=== PATIENT | female | born 1965 | race Caucasian/White ===

== ENCOUNTER 2017-04-29 16:55 | Inpatient (IN) | payer OTHER ==
--- NOTE | ~2017-04-29 | CT71 ---
[facility] A Service [facility] RADIOLOGY TEXT RESULTS PATIENT: JOY RIGGS LOCATION: [place] [address] : [birth year] UNIT #: [id number] AGE: [address]: Shane Jaeger MD SEX: F ORDER DR: [id number] [place] [id number] [place], [place] [address] [id number] I MR#: [id number] Acc #: [id number] NAME: JOY RIGGS : 1965 SEX: F STUDY DATE/TIME: 04/30/2017 12:24 UNIT: [facility] ROOM: [facility] STUDY DESCRIPTION: CT Head Wo Contrast Attending Physician: Shane Jaeger M.D. Ordering Physician: Leopoldo Enamorado M.D. Primary Care Physician: Shane Jaeger M.D. MEDICAL IMAGING REPORT This report is preliminary unless electronic signature is present TECHNIQUE Head CT, no contrast; 04/30/2017. PROCEDURE Axial unenhanced head CT. This CT exam was performed with one or more of the following radiation dose reduction techniques: automatic exposure control, adjustment of mA and/or kV according to patient size, and iterative reconstruction. COMPARISON None. CLINICAL HISTORY Two to three day history of persistent intermittent headache. FINDINGS The skull base and calvaria are normal. There is no intracranial hemorrhage. There is no mass or hydrocephalus or extraaxial fluid collection. Brain parenchymal density is normal. The extracranial soft tissues are unremarkable. IMPRESSION Normal negative unenhanced head CT. Dictated by... Aniceto Sterling M.D. THIS IS AN ELECTRONICALLY VERIFIED REPORT Aniceto Sterling M.D. at 05/03/2017 10:57 AM TEV/jt [facility] A Service [facility] RADIOLOGY TEXT RESULTS PATIENT: JOY RIGGS LOCATION: [place] [address] : 63 UNIT #: [id number] AGE: [address]: Shane Jaeger MD SEX: F ORDER DR: TD: 04/30/2017 18:25 JOB #: [id number] MEDICAL IMAGING REPORT Page 1 of 1 COPY
--- NOTE | ~2017-04-29 | HP ---
Unit #: [id number] #: [id number] Patient: JOY BENJAMIN [id number] [address] [address] [id number] I MR#: [id number] NAME: JOY BENJAMIN. ROOM: [facility] Age: 51 Sex: F Admission Date: 04/29/2017 : 1965 Attending Physician: Shane Jaeger M.D. Primary Care Physician: Shane Jaeger M.D. HISTORY AND PHYSICAL ADMISSION DIAGNOSES 1. Sepsis. 2. Bacteremia. 3. Altered mental status. 4. Diabetes. 5. Morbid obesity. 6. Obstructive sleep apnea. 7. Asthma and chronic obstructive pulmonary disease. 8. Hypertension. 9. Depression. 10. Left lower extremity cellulitis. HISTORY OF PRESENT ILLNESS Ms. Benjamin is 51-year-old female, patient of Dr. Jaeger, who apparently started having fever, chills for last couple of days along with the altered mental status and confusion. His temperature went up as high as 103. She also complains of some headache and further sensitivity. She denies any nausea, vomiting, diarrhea, abdominal pain. Denies any chest pain or dizziness. Denies any syncope or presyncope. However, she is quite confused. She is oriented to place; however, she is disoriented to time. She thinks it is year 2008. According to her, her symptoms started about two to three days ago. Here, initial evaluation was significant for 2/2 positive blood cultures with GPC (gram-positive cocci), also elevated lactic acid. Last one is 5.1. She was admitted and started on empiric IV antibiotics in ICU with the sepsis protocol. REVIEW OF SYSTEMS A 12-point review of systems on this patient is basically negative except as above in HPI. PAST MEDICAL HISTORY 1. Hypertension. 2. Morbid obesity. 3. Diabetes. 4. COPD. 5. Asthma. 6. Obstructive sleep apnea. 7. Depression. PAST SURGICAL HISTORY Significant for umbilical hernia repair. MEDICATIONS Current medications on this female include: Unit #: [id number] #: [id number] Patient: JOY BENJAMIN 1. Lipitor. 2. Desyrel. 3. Vancomycin. 4. Lovenox. 5. Topamax. 6. Furosemide. 7. Flonase. 8. Claritin. 9. Zoloft. 10. Zestril. 11. Ceftriaxone. 12. Clindamycin. 13. Spiriva. 14. Proventil. 15. Vitamin D. 16. Tylenol. 17. IV fluids with half normal saline. ALLERGIES No known drug allergies. SOCIAL HISTORY No current history of tobacco, alcohol, or illicit drugs. FAMILY HISTORY Unremarkable. PHYSICAL EXAMINATION GENERAL: Patient is a 51-year-old morbidly obese female, mild distress secondary to headache. VITAL SIGNS: BP 137/67, heart rate 125, respirations 20, temperature 99.8. HEENT: Head is atraumatic. Pupils equal, round, and reactive to light. Oropharynx clear. NECK: Supple. No masses. No JVD. No bruits. CHEST: Diminished bilaterally. CARDIOVASCULAR: S1, S2. No murmurs. ABDOMEN: Obese, soft, nontender, nondistended. EXTREMITIES: Lower extremities with some trace edema. Also, extensive erythema on the left beginning about mid tibia all the way down to the foot. NEUROLOGIC: Patient alert and awake; however, confused. No focal neurological deficits. Moves all four extremities. No facial asymmetry. DIAGNOSTIC STUDIES LABORATORY: Again, blood culture as above. Chemistries significant for potassium of 3.1, sodium 130, blood glucose 130, BUN and creatinine 19 and 0.9. PT/INR 14.1 and 1.3. Set of cardiac enzymes negative. White count 16,000, H and H 12.1 and 37.6. Again, last lactic acid 5.1. ASSESSMENT AND PLAN 1. Sepsis with bacteremia: Continue IV antibiotics per infectious disease. Dr. Enamorado has been seeing the patient. 2. Altered mental status, most likely will need to have a lumbar puncture status post negative CT. 3. Lower extremity cellulitis: Again, continue antibiotics. 4. Diabetes: Currently stable. 5. Morbid obesity with obstructive sleep apnea: Continue CPAP. Unit #: [id number] #: [id number] Patient: JOY BENJAMIN 6. Asthma, chronic obstructive pulmonary disease: Currently at the baseline. 7. Hypertension: Stable. 8. Depression. 9. Dyslipidemia: Continue home meds. 10. Gastrointestinal and deep venous thrombosis prophylaxis: Continue Lovenox. Start on some Protonix. Dictated by Jose Alfredo Thomason M.D. KEATON/brendan TD: 05/01/2017 08:35 JOB #: [id number] HISTORY AND PHYSICAL Page 1 of 1 X Jose Alfredo Thomason MD HISTORY AND PHYSICAL
--- NOTE | ~2017-04-29 | XA75 ---
[facility] A Service of [facility] & [facility] RADIOLOGY TEXT RESULTS PATIENT: JOY RIGGS LOCATION: [facility] 558-01 : 63 UNIT #: [id number] AGE: [address]: Shane Jaeger MD SEX: F ORDER DR: [id number] [facility] [address] [place], [place] [address] [id number] I MR#: [id number] Acc #: [id number] NAME: JOY RIGGS. : 1965 SEX: F STUDY DATE/TIME: 04/30/2017 16:04 UNIT: [facility] ROOM: [facility] STUDY DESCRIPTION: XA CVC Non-Tunnel Attending Physician: Shane Jaeger M.D. Ordering Physician: Shane Jaeger M.D. Primary Care Physician: Shane Jaeger M.D. MEDICAL IMAGING REPORT This report is preliminary unless electronic signature is present EXAM Central line placement INDICATIONS Need for IV access in a patient with acute kidney injury, fever and tachycardia noted on April 29, 2017. PROCEDURE Procedure was explained to the patients freight representative, including risks, benefits and potential complications, potential for alternative forms of treatment. Informed consent was obtained and prior to initiating the procedure a formal time-out procedure was performed. Using all elements of maximal sterile barrier technique, including hand hygiene, caps, sterile gowns and gloves and masks. The right neck was prepped with 2% chlorhexidine percutaneous antisepsis and covered with large sterile sheet. The ultrasound probe was covered with sterile probe cover and sterile gel was applied. Real time sterile ultrasound guidance was used to localize right internal jugular vein, which was found to be patent and compressible. A hard copy ultrasound image was obtained. After local anesthesia with 1% Xylocaine the vein was punctured using real-time sterile ultrasound guidance and an 0.018 catheter was advanced into the superior vena cava under fluoroscopic guidance. Micropuncture sheath was placed and an Amplatz wire was advanced into the inferior vena cava. Tract was dilated and a new triple-lumen central venous line was advanced over wire and positioned within the right atrium. Following placement of the catheter it flushed and aspirated easily. It was secured using two 2-0 silk sutures. Position of the catheter was confirmed with radiographic image. Total fluoroscopy time was 0.3 minutes and a single fluoroscopic image was obtained. IMPRESSION Successful placement of a right internal jugular vein central venous line [facility]. [facility] A Service of [facility] & [facility] RADIOLOGY TEXT RESULTS PATIENT: JOY RIGGS LOCATION: [facility] 558-01 : 63 UNIT #: [id number] AGE: [address]: Shaen Jaeger MD SEX: F ORDER DR: which terminates within the right atrium. This catheter is ready for immediate use. Ultrasound and fluoroscopy were used in placement of the catheter and permanent images were saved. Dictated by... Bernice Dhaliwal M.D. THIS IS AN ELECTRONICALLY VERIFIED REPORT Bernice Dhaliwal M.D. at 05/03/2017 5:21 PM BRITNEY/jim TD: 05/03/2017 15:52 JOB #: [id number] MEDICAL IMAGING REPORT Page 1 of 1 COPY
--- NOTE | ~2017-04-29 | DS ---
Unit #: [id number] #: [id number] Patient: JOY RIGGS [id number] [address] [address] [id number] I MR#: [id number] NAME: JOY RIGGS. ROOM: 578 Age: 51 Sex: F Admission Date: 04/29/2017 : 1965 Discharge Date: 05/10/2017 Attending Physician: Shane Jaeger M.D. Primary Care Physician: Shane Jaeger M.D. DISCHARGE SUMMARY FINAL DIAGNOSES 1. Septic shock. 2. Toxic metabolic encephalopathy. 3. Strep bacteremia. 4. Cellulitis. 5. Osteomyelitis has been ruled out. 6. Hypertension. 7. Acute kidney injury. 8. Hypokalemia, which is improved. 9. Diabetes mellitus. 10. Obstructive sleep apnea. 11. Morbid obesity. 12. History of asthma/chronic obstructive pulmonary disease. 13. History of depression. DISCHARGE MEDICATIONS 1. IV ceftriaxone 2 g q.24 hour till 05/14/2017. 2. Desyrel 200 mg at bedtime, which is a home dose. 3. Zoloft 200 mg daily. 4. Glucophage 1000 mg b.i.d. 5. Neurontin 300 mg b.i.d. 6. Florastor 250 mg daily. 7. Tanzeum 50 subcu daily at home dose. 8. Spiriva daily. 9. Pravastatin 40 mg daily. 10. Vitamin D 1.25 mg every weekly. 11. Flonase daily. 12. QVAR inhaler daily. 13. Spironolactone 25 mg b.i.d. 14. Albuterol inhaler on p.r.n. basis. 15. Claritin 10 mg daily. 16. Bumex 2 mg daily. 17. Zestril 20 mg daily. DIAGNOSTIC STUDIES LABORATORY RESULTS: On discharge, sodium 131, potassium 3.6, chloride 98, BUN 23, creatinine 1.6, and calcium 8.3. WBC 14.8, hemoglobin 9.7, hematocrit 29.4, and platelet count of 572. Glucose 120. Lactic acid on discharge is 0.7. Repeat blood cultures on 05/01/2017 was no growth. Urine culture showed no growth. IMAGING STUDIES: Significant radiological studies done with CT scan of the lower extremity. There was no fracture or bone destruction. Unit #: [id number] #: [id number] Patient: JOY RIGGS Degenerative changes were noted. No osteomyelitic changes were seen. Ultrasound of the lower extremity, which shows no sonographic evidence of DVT or SVT. Ultrasound of kidneys showed no hydronephrosis or shadowing stone on either site. HOSPITAL COURSE Ms. Jesus is a 51-year-old female who was admitted to the hospital on 04/29/2017 with sepsis and bacteremia. The patient was admitted by my colleague, Dr. Thomason. The patient had lower extremity cellulitis. She was admitted to ICU. She has had a long stay during hospitalization. Osteomyelitis has been ruled out. The patient's antibiotics are as per Dr. Enamorado, who was consulted during hospitalization. The patient needs to continue her antibiotics till 05/14/2017. The patient did have group A strep sepsis secondary to left lower extremity cellulitis. The patient's leukocytosis has been resolved. The patient is to continue ceftriaxone 2 g IV daily through 05/14/2017. On 05/14/2017, check CBC, BMP, and results to be faxed to primary care provider and discontinue PICC line. PHYSICAL EXAMINATION On discharge; VITAL SIGNS: Blood pressure is 145/82, respiratory rate 17, pulse is 50, temperature 98.2, and oxygen saturation is 92%. HEENT: Head is normocephalic. CHEST: Fair air entry. Decreased at the bases. CVS: S1 and S2 positive. Regular rhythm. ABDOMEN: Obese. EXTREMITIES: Decreased redness and swelling of the left lower extremity. DISCHARGE INSTRUCTIONS 1. Follow up with primary care provider in 1 week. 2. [facility]NA to consult for home IV antibiotics. 3. manager marketing sales to arrange for home O2. 4. Walking room air pulse ox was done to eval for home O2. 5. Antibiotic is as per Infectious Disease. 6. Plan of care has been discussed with the patient at length. Dictated by.Rsoalia. Heather Conley M.D. ADORE/taylor TD: 05/12/2017 02:46 JOB #: [id number] DISCHARGE SUMMARY Page 1 of 1 X Heather Conley MD DISCHARGE SUMMARY
--- NOTE | ~2017-04-29 | CT92 ---
[facility] A Service of [facility] & [facility] RADIOLOGY TEXT RESULTS PATIENT: JOY RIGGS LOCATION: [facility] 578-01 : 63 UNIT #: [id number] AGE: [address]: Shane Jaeger MD SEX: F ORDER DR: [id number] [facility] [address] [place], [place] [address] [id number] I MR#: [id number] Acc #: [id number] NAME: JOY RIGGS. : 1965 SEX: F STUDY DATE/TIME: 05/04/2017 13:54 UNIT: C5B ROOM: 558 STUDY DESCRIPTION: CT Lower Ext Lt Wo Cont Attending Physician: Shane Jaeger M.D. Ordering Physician: Leopoldo Enamorado M.D. Primary Care Physician: Shane Jaeger M.D. MEDICAL IMAGING REPORT This report is preliminary unless electronic signature is present EXAM CT left foot without contrast HISTORY Foot pain and swelling and redness for 4 days. Heel redness and swelling and pain. No injury. This CT exam was performed with one or more of the following radiation dose reduction techniques: automatic exposure control, adjustment of mA and/or kV according to patient size, and iterative reconstruction. FINDINGS CT left foot without contrast demonstrates no bone destruction. No fracture. Moderate degenerative changes in the midfoot and hindfoot and ankle. Approximately 4 mm well-marginated curvilinear calcification versus foreign body in the plantar soft tissues of the great toe at the level of the IP joint. Mild diffuse subcutaneous stranding about the ankle and foot, greater along the plantar margin of the calcaneus, could be secondary to edema or cellulitis. No fluid collections are identified. There is also a 3 mm soft tissue calcification over the dorsum of the forefoot adjacent to the midshaft of the second metatarsal. IMPRESSION 1. No fracture or bone destruction. 2. Degenerative changes in the foot and ankle. 3. Mild to moderate soft tissue swelling about the ankle and foot, slightly greater along the plantar margin of the posterior calcaneus. This could be secondary to edema or cellulitis. No focal fluid collections are identified. 4. Small probably incidental soft tissue calcifications along the plantar margin of the great toe at the level of the IP joint and along the dorsum of the forefoot at the level of the distal second metatarsal. [facility] A Service of [facility] RADIOLOGY TEXT RESULTS PATIENT: JOY RIGGS LOCATION: [place] [address] : [birth year] UNIT #: [id number] AGE: [address]: Shane Jaeger MD SEX: F ORDER DR: Dictated by... Juan Ortiz M.D. THIS IS AN ELECTRONICALLY VERIFIED REPORT Juan Ortiz M.D. at 05/05/2017 11:31 PM МАРИЯ/cha TD: 05/05/2017 04:01 JOB #: [id number] MEDICAL IMAGING REPORT Page 1 of 1 COPY
--- NOTE | ~2017-04-29 | CO ---
Unit #: [id number] #: [id number] Patient: JOY RIGGS [id number] [place] [address] [facility] [place], [place] [address] [id number] I MR#: [id number] NAME: JOY RIGGS. ROOM: [facility] Age: 51 Sex: F Admission Date: 04/29/2017 : 1965 Attending Physician: Shane Jaeger M.D. Primary Care Physician: Shane Jaeger M.D. Consultation Date: 04/30/2017 CONSULTATION REPORT REASON FOR CONSULTATION Sepsis. HISTORY OF PRESENT ILLNESS This is a 51-year-old obese diabetic female who is unable to provide much of her history secondary to lethargy and confusion. The patient was brought in to the hospital by her family after the son talked to her at 8 a.m. He reported that she had been having fevers for a few days, but is fairly nonspecific. But, then when he called her again at noon to check on her she had some more confusion and he brought her to the emergency room. The patient was sent to [facility] for sepsis management. While here the patient has had a t-max of 103 degrees Fahrenheit. She has had leukocytosis with bandemia and elevated lactic acid. CT scan of the chest, abdomen and pelvis was negative. However, the patient remains confused at this time this morning. The patient has been started on vancomycin, Zosyn and clindamycin and infectious disease was asked to evaluate. The patient's son also reported that her left toenail came off a few weeks ago and had some toe surgery several months ago. PAST MEDICAL HISTORY Obtained through the patient's last history and physical in 2014. 1. History of diabetes. 2. Asthma. 3. Chronic obstructive pulmonary disease. 4. Obstructive sleep apnea and wears a CPAP. 5. Hypertension. 6. Depression. 7. Obesity. 8. Umbilical hernia surgery. SOCIAL HISTORY The patient lives with others. 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 She has no current tobacco since 2004. She does not use any alcohol or IV drugs. ALLERGIES No known drug allergies. CURRENT MEDICATIONS 1. Vancomycin. 2. Zosyn. 3. Clindamycin. Unit #: [id number] #: [id number] Patient: JOY RIGGS For further medications please refer to the patient's MAR. She is not requiring any pressor support. REVIEW OF SYSTEMS Difficult secondary to the patient's lethargy and confusion, as she thinks it is 1966. She does report that she has intermittent headache and neck pain and pain with urination. Otherwise she denies any symptoms. PHYSICAL EXAMINATION GENERAL: This is a lethargic, confused female, but she does awaken to attempt to answer questions and then falls asleep easily. VITALS: Temperature 100.2 with a t-max of 103.0, pulse 138, blood pressure 115/78, with a low blood pressure of 85/53 on admission, respiratory rate 28. HEENT: Pupils are sluggish. NECK: Supple. LUNGS: Clear to auscultation bilaterally with no wheezes or rhonchi noted. HEART: S1 and S2 with tachycardia. ABDOMEN: Positive bowel sounds. Soft and nontender. EXTREMITIES: Left lower extremity shows some cellulitis that has been traveling up to her mid wal[place]. She has what appears to be trauma to her left fifth toe and maybe partial amputation to her second toe. DIAGNOSTIC STUDIES IMAGING: CT scan of the abdomen and pelvis shows no renal stones, no hydronephrosis, no acute findings in the GI tract and bladder is compressed by the [place]. Please see full report as there is mention of some retroperitoneal adenopathy that was present in 2010, but somewhat worsened. CT scan of the chest shows no acute findings in the chest. LABORATORY: BUN 19, creatinine 0.9, sodium 130, potassium 5.7, chloride 87, CO2 36, bilirubin 0.8, AST 34, ALT 22, alkaline phosphatase 98, lactic acid 3.5, which is improved from 5.6. White blood cell count 16.5, which is improved from 23.5 and 5% bandemia. Platelets 202, hemoglobin 12.1, hematocrit 37.6. Urinalysis shows negative nitrites, 5-10 WBCs, 1+ bacteria. Microbiology data, 2 of 2 positive blood cultures for Gram positive cocci in chains. Urine culture is pending. Stool culture is pending. ASSESSMENT This is a 51-year-old female who is diabetic and obese, who has been having some fevers at home, but difficult to obtain much other history. The patient had some developing and worsening confusion per the family and was brought to the hospital and was found to be septic. The patient does have Gram positive cocci in chains and suspect a strep infection. The patient also has fever and confusion. Suspected sources at this time include left lower extremity cellulitis and possible cysto osteomyelitis. The patient will need blood cultures repeated. She will need an MRI of her lower extremity and toe when stable. Will check inflammatory markers with CRP and sedimentation rate. 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 However, will need to rule out any possibility of meningitis and pneumococcal meningitis as the patient does have ongoing confusion and fever. The patient's CT scan of the chest, abdomen and pelvis were negative. However, the patient Unit #: [id number] #: [id number] Patient: JOY RIGGS has ongoing diarrhea and studies for her stool are currently pending. At this time will plan to continue current antibiotics. Will repeat blood cultures. Will check inflammatory markers. Will check a CT scan of her head and a STAT PT/INR. Will also ask interventional radiology to do a lumbar puncture and send fluid for cell count with diff, glucose, protein, gram stain and culture, AFB and fungal smear and culture. Will recommend to continue vancomycin and clindamycin, but discontinue the Zosyn and place the patient on high-dose Rocephin pending the patient's workup. This case was discussed in detail with Dr. Leopoldo Enamorado at the time that orders were written, who confirmed that the patient does need a lumbar puncture and adjustment of antibiotic therapy. Dr. Leopoldo Enamorado will evaluate this patient today as well. This case was also discussed with the patient's son, who was at the bedside and then after he left we called him on the phone to consent for a lumbar puncture. The patient's son understands the need for the lumbar puncture and consents to this procedure. Thank you for allowing us to participate in the care of this patient. Further recommendations to follow pending the patient's clinical course. Dictated by... Ivonne Chambers TD: 04/30/2017 10:09 JOB #: [id number] CONSULTATION REPORT Page 1 of 1 X X CONSULTATION REPORT
--- NOTE | ~2017-04-29 | BMI ---
[facility] Nutrition Therapy DATE: 04/30/17 Patient: JOY Chávez KEELY Physician: ARLET Address: [address] [place] [address] DRIVE Room/Bed: [address], Zip: [place] [address] Admit Date: 04/29/17 Date of : [birth year] Height: 5 5 Weight: 414 188 HIGH BMI NOTE: ANTHROPOMETRICS: HT: 5'5" WT: 188 KG BMI: 69 DIET: CONSISTENT CARBOHYDRATE RECOMMENDATIONS: 1. ADD A HEART HEALTHY DIET RESTRICTION IN ORDER TO PROMOTE GRADUAL WEIGHT LOSS TOWARDS HEALTHY BMI RANGE. Respectfully, JOSE FORD RD, LD Food and Nutritional Services [facility] cc: client file
--- NOTE | ~2017-04-29 | US84 ---
[id number] [facility]. [facility] [address]. [place], [place] [address] [id number] I MR#: [id number] Acc #: [id number] NAME: JOY RIGGS : 1965 SEX: F STUDY DATE/TIME: 05/04/2017 12:58 UNIT: C5B ROOM: 558 STUDY DESCRIPTION: US LE Veins Complete Dewayne Stdy Attending Physician: Shane Jaeger M.D. Ordering Physician: Giulia Hirsch M.D. Primary Care Physician: Shane Jaeger M.D. MEDICAL IMAGING REPORT This report is preliminary unless electronic signature is present EXAM Bilateral lower extremity venous Doppler HISTORY 51-year-old female bilateral lower extremity cellulitis since . Patient on blood thinners. Complains of calf pain. FINDINGS 2-D and Doppler evaluation of the lower extremities demonstrates normal flow and compressibility of the major veins of both lower extremities. No intraluminal thrombus identified. Study technically limited due to patient's morbid obesity. Hypoechoic structure seen in the left groin compatible with a lymph node measures up to 3.8 cm. IMPRESSION No sonographic evidence of DVT or SVT within either lower extremity. Study technically limited due to body habitus. Dictated by... Rosa Esteves M.D. THIS IS AN ELECTRONICALLY VERIFIED REPORT Rosa Esteves M.D. at 05/05/2017 12:31 PM Bill TD: 05/05/2017 00:56 JOB #: [id number] MEDICAL IMAGING REPORT Page 1 of 1 COPY
--- NOTE | ~2017-04-29 | CO ---
Unit #: [id number] #: [id number] Patient: JOY RIGGS [id number] [address] [place], [place] [address] [id number] I MR#: [id number] NAME: JOY RIGGS. ROOM: [facility] Age: 51 Sex: F Admission Date: 04/29/2017 : 1965 Attending Physician: Shane Jaeger M.D. Primary Care Physician: Shane Jaeger M.D. CONSULTATION REPORT REASON FOR CONSULTATION Elevated creatinine level. HISTORY OF PRESENT ILLNESS The patient is a 51-year-old, obese white female with known history of hypertension, type 2 diabetes, COPD, came in with a fever and confusion, noted to have Gram-positive cocci in both cultures, also elevated lactic acid of 5.1. Patient temperature of 103 with a temperature of 98 degrees on admission. Patient given IV fluids and also given vancomycin and Zosyn and clindamycin. The admission creatinine was 1.4 which is slowly rising to 3.1 today. No noted NSAIDs. No recent IV contrast. REVIEW OF SYSTEMS CVS: No chest pain. RESPIRATORY: No cough or expectoration. GASTROINTESTINAL: No diarrhea. No vomiting. GENITOURINARY: No hematuria. No dysuria. PAST MEDICAL HISTORY The past medical history is significant for hypertension, morbid obesity, diabetes, COPD, obstructive sleep apnea. PAST SURGICAL HISTORY Past surgical history is significant for umbilical hernia. MEDICATIONS The medications include Lipitor, Desyrel, vancomycin and Topamax, furosemide, Flonase, Zoloft, Zestril, ceftriaxone, clindamycin, Proventil, vitamin D. ALLERGIES No known drug allergies. SOCIAL HISTORY Does not drink. Does not smoke. FAMILY HISTORY Family history is unremarkable for end-stage renal disease. PHYSICAL EXAMINATION GENERAL APPEARANCE: The patient is awake, alert, and oriented. VITAL SIGNS: Temperature is 99.8, blood pressure 137/67, saturation 100%, with a heart rate of 88 per minute. Unit #: [id number] #: [id number] Patient: JOY RIGGS HEENT: Head is atraumatic. Extraocular movements are intact. Sclerae are anicteric. Nose no discharge. Ears no discharge. NECK: Neck is supple. There is no elevation of the JVD. CHEST: Chest is clear. Air entry is equal bilaterally. Breathing is vesicular in nature. HEART: S1, S2 audible. There is no S3, no S4. ABDOMEN: Abdomen is soft. There is no organomegaly, no guarding, no rigidity, no rebound tenderness. EXTREMITIES: There is trace edema over the left lower extremity with clinical cellulitis on admission. [employer]ATE EXAM: Motor system is intact. Cerebellar system intact. DIAGNOSTIC STUDIES LABORATORY: On admission sodium 130, potassium 4.1, chloride 98, CO2 20, BUN 19, creatinine 1.4, glucose 377, calcium 8.4. The urinalysis with 2+ protein and 5 to 10 WBCs, 1+ bacteria. WBCs 23.5, hemoglobin and hematocrit is 14.1 and 43.2, with a platelet count of 54. Lactic acid is 3.5. The creatinine level is 3.3 this morning. IMAGING: A CT scan of the chest, abdomen and pelvis with possible colitis. IMPRESSION 1. Acute kidney injury, possibly secondary to a combination of vancomycin and Zosyn: Check vancomycin level. Less likely to be ATN secondary to hypotension and sepsis. Also possible contribution and exacerbation by concomitant Zestril. Check renal ultrasound for any evidence of obstruction. Renal function could worsen in the next one to two days before stabilization. Do not expect to need dialysis during the hospitalization. 2. Hyponatremia, likely hemodynamically related. 3. Non-anion gap metabolic acidosis secondary to acute kidney injury. 4. Hypocalcemia: Supplement calcium and check vitamin D levels. 5. Hypokalemia: Supplement potassium. 6. Sepsis. 7. Cellulitis. 8. Gram-positive coccemia/bacteremia. 9. Hypertension. 10. Diabetes. Dictated by... Melissa Burgess TD: 05/02/2017 16:09 JOB #: [id number] Unit #: [id number] #: [id number] Patient: JOY RIGGS CONSULTATION REPORT Page 1 of 1 X Arun Min MD CONSULTATION REPORT
--- NOTE | ~2017-04-29 | EKG ---
PATIENT: JOY RIGGS UNIT #: [id number] Ventricular Rate: 110 BPM Atrial Rate: 129 BPM P-R Interval: 174 ms QRS Duration: 92 ms Q-T Interval: 344 ms QTC Calculation(Bezet): 465 ms P [place]: 77 degrees Calculated R [place]: 17 degrees Calculated T [place]: 32 degrees Diagnosis Line: Sinus tachycardia with Premature atrial complexes Diagnosis Line: in a pattern of bigeminy Diagnosis Line: Nonspecific T wave abnormality Diagnosis Line: Abnormal ECG Diagnosis Line: Diagnosis Line: Confirmed by DESIRAE RAMIREZ MD ([id number]) on 05/05/2017 Diagnosis Line: 2:44:19 PM INTERPRETING MD: ASHLEY PAULINO
--- NOTE | ~2017-04-29 | XA166 ---
[facility] A Service of [facility] RADIOLOGY TEXT RESULTS PATIENT: JOY RIGGS LOCATION: [facility] 578-01 : [birth year] UNIT #: [id number] AGE: [address]: Shane Jaeger MD SEX: F ORDER DR: [id number] [facility] [address] [facility]. [place], [place] [address] [id number] I MR#: [id number] Acc #: [id number] NAME: JOY RIGGS. : 1965 SEX: F STUDY DATE/TIME: 05/06/2017 15:13 UNIT: [facility] ROOM: [facility] STUDY DESCRIPTION: XA PICC Line Placement WO Port Attending Physician: Shane Jaeger M.D. Ordering Physician: Deniz Arcos M.D. Primary Care Physician: Shane Jaeger M.D. MEDICAL IMAGING REPORT This report is preliminary unless electronic signature is present EXAM Right-sided PICC line placement. INDICATION Need for IV access in patient with acute renal failure. FINDINGS PRE-PROCEDURE The procedure was explained to the patient and/or patient underwriting service representative, including risks, benefits, potential complications and potential for alternative forms of treatment. Informed consent was obtained, and prior to initiating the procedure, a formal timeout procedure was performed. PROCEDURE Using full standard sterile barrier technique, including caps, gowns, gloves, and masks, as well as sterile skin preparation and standard sterile draping, the right arm was prepped and draped in the usual fashion, and real-time sterile ultrasound guidance was used to localize a right arm vein and to confirm vessel patency. A hard copy ultrasound image was recorded. After local anesthesia with 1% Xylocaine, the vein was punctured using real-time sterile ultrasound guidance, and a 0.018 guidewire was advanced into the superior vena cava, using fluoroscopic guidance. A 5 Cameroonian dual-lumen PICC was then measured and deployed with the tip positioned in the superior vena cava. The position of the line was documented with a radiographic image. The line was secured in place with an adhesive dressing and an antibiotic patch was applied. Total fluoro time was 0.2 minutes. AK was 2 mGy-cm. IMPRESSION Successful placement of a 5 Cameroonian -dual lumen PowerPICC via the right arm under ultrasound and fluoroscopic guidance. The tip of the PICC is in good position in the superior vena cava. [facility]. [facility] A Service of [facility] RADIOLOGY TEXT RESULTS PATIENT: JOY RIGGS LOCATION: [facility] 578-01 : [birth year] UNIT #: [id number] AGE: [address]: Shane Jaeger MD SEX: F ORDER DR: Dictated by... Bernice Dhaliwal M.D. THIS IS AN ELECTRONICALLY VERIFIED REPORT Bernice Dhaliwal M.D. at 05/07/2017 5:14 PM BRITNEY/lorne TD: 05/07/2017 11:16 JOB #: [id number] MEDICAL IMAGING REPORT Page 1 of 1 COPY
--- NOTE | ~2017-04-29 | US77 ---
[facility] RAD[facility]Y TEXT RESULTS PATIENT: JOY RIGGS LOCATION: [address] : [birth year] UNIT #: [id number] AGE: [address]: Shane Jaeger MD SEX: F ORDER DR: [id number] [facility] [address] [facility]. [place], [place] [address] [id number] I MR#: [id number] Acc #: [id number] NAME: JOY RIGGS. : 1965 SEX: F STUDY DATE/TIME: 05/01/2017 11:25 UNIT: [facility] ROOM: [facility] STUDY DESCRIPTION: US Kidney Bilateral Complete Attending Physician: Shane Jaeger M.D. Ordering Physician: Giulia Hirsch M.D. Primary Care Physician: Shane Jaeger M.D. MEDICAL IMAGING REPORT This report is preliminary unless electronic signature is present EXAM Renal ultrasound, bilateral, 05/01/2017. INDICATIONS Acute renal injury since April 29. BUN 34, creatinine 3.0, GFR 17. TECHNIQUE Sonographic imaging of the kidneys performed bilaterally. COMPARISON No comparisons. FINDINGS The right kidney measures 14 cm long axis by 5.3 x 5.4 cm and the left measures 11.5 cm long axis by 6.9 x 6.1 cm. No hydronephrosis or shadowing stone on either side. Incidental probable fatty infiltration of the liver. Bladder not distended or evaluated. IMPRESSION 1. No hydronephrosis or shadowing stone on either side. 2. The bladder was decompressed and not visualized or assessed. Dictated by... Nathaniel Bradley M.D. THIS IS AN ELECTRONICALLY VERIFIED REPORT Nathaniel Bradley M.D. at 05/02/2017 8:47 AM Nikki TD: 05/01/2017 22:51 JOB #: [id number] MEDICAL IMAGING REPORT [facility] A Service of [facility] RADIOLOGY TEXT RESULTS PATIENT: JOY RIGGS LOCATION: [address] : [birth year] UNIT #: [id number] AGE: [address]: Shane Jaeger MD SEX: F ORDER DR: Page 1 of 1 COPY
--- NOTE | ~2017-04-29 | CO ---
Unit #: [id number] #: [id number] Patient: JOY RIGGS [id number] [address] [address] [id number] I MR#: [id number] NAME: JOY RIGGS ROOM: 558 Age: 51 Sex: F Admission Date: 04/29/2017 : 1965 Attending Physician: Shane Jaeger M.D. Primary Care Physician: Shane Jaeger M.D. Consultation Date: 05/01/2017 CONSULTATION REPORT REASON FOR CONSULTATION Critical care management. CHIEF COMPLAINT Sepsis, bacteremia, altered mental status, diabetes mellitus, obstructive sleep apnea, depression, hypertension. 51-year-old female presents with a complaint of altered mental status, fevers, chills, rigors, left lower extremity swelling, edema for the last two to three days. Symptoms have been getting worse. There was a concern for possible meningitis. The patient was transferred to ICU and mental status has improved. I am seeing her at bedside complaining of shortness of breath. Denies any headache, blurry vision. No chest pain. REVIEW OF SYSTEMS Positive for pallor. No edema, no cyanosis, no jaundice. The rest as per History of Present Illness. The rest of the twelve point review of systems has been reviewed and is negative. PAST MEDICAL HISTORY 1. Hypertension. 2. Morbid obesity. 3. Diabetes mellitus. 4. COPD. 5. Asthma. 6. Obstructive sleep apnea. 7. Depression. SURGICAL HISTORY Umbilical hernia repair. MEDICATIONS 1. Lipitor. 2. Desyrel. 3. Vancomycin. 4. Lovenox. 5. Topamax. 6. Lasix. 7. Flonase. 8. Claritin. 9. Zoloft. 10. Zestril. 11. Ceftriaxone. 12. Clindamycin. Unit #: [id number] #: [id number] Patient: JOY RIGGS 13. Spiriva. 14. Proventil. 15. Vitamin D. 16. Tylenol. ALLERGIES No known drug allergies. SOCIAL HISTORY No tobacco, alcohol or drug abuse. PHYSICAL EXAMINATION VITAL SIGNS: Temperature 98, pulse 87, respirations 12, blood pressure 130/70. NEUROLOGICAL: Awake, alert, oriented. No neuro deficit. HEENT: PERRLA. NECK: Supple. No JVD. CHEST: Bilateral air entry, bilateral mild rhonchi. GI: Nontender, soft. Bowel sounds positive. EXTREMITIES: No edema. SKIN: No rashes, no ulcers. LYMPHATIC: No lymphadenopathy. DIAGNOSTIC STUDIES Labs and imaging have been reviewed. ASSESSMENT 1. Positive edema of bilateral lower extremities with erythema of the left lower extremity. 2. Septic shock. 3. Altered mental status, improved. 4. Left lower extremity cellulitis. 5. Acute kidney injury. 6. Asthma. 7. Hypertension. 8. Depression. 9. Dyslipidemia. Plan is to continue patient on current antibiotics. Hold vancomycin. Continue oxygen and bronchodilator. Pressors as needed. IV fluids. Consult nephrology. Infectious disease already on board. We will follow the cultures. CPAP at night. Patient will be closely monitored. Please see orders for detailed plan. Thank you very much for this consultation. Dictated by... Melissa Tracy/gris TD: 05/03/2017 05:58 JOB #: [id number] Unit #: [id number] #: [id number] Patient: JOY RIGGS CONSULTATION REPORT Page 1 of 1 X Giulia Hirsch MD X CONSULTATION REPORT
[~2017-04-29 16:55] MED LIST changes: -ACETAMINOPHEN PO; -ANTI-FUNGAL15 GM TOP; -BUMEX PO; -LISINOPRIL20 MG PO; -PROBIOTIC250 MG PO; -ROCEPHIN IV
[2017-04-30 05:25] LABS: BASOPHIL% 0.1 % (0-2.5); HEMATOCRIT 37.6 % (35.0-45.0); LYMPHOCYTE# 0.4 X10e3 (1.0-3.5); LYMPHOCYTE% 2.4 % (17.0-45.0); MEAN CELL VOLUME 90.1 FL (83-96); MEAN CORPUSCULAR HGB CONC 32.2 g/dL (30-36); MEAN PLATELET VOLUME 10.6 FL (6.5-11.5); MONOCYTE# 2.2 X10e3 (0-1.0); MONOCYTE% 13.1 % (3.0-12.0); NEUTROPHIL# 13.9 X10e3 (1.5-7.1); NEUTROPHIL% 84.4 % (40-75); PLATELET COUNT 202 X10e3 (140-420); RED BLOOD COUNT 4.17 X10e (3.90-5.30); RED CELL DISTRIBUTION WIDTH 14.2 % (11.0-15.5); WHITE BLOOD COUNT 16.5 X10e3 (4.0-10.5)
[2017-04-30 05:28] LABS: DIFF IND NO; HEMOGLOBIN 12.1 gm/dL (12.0-16.0)
[2017-04-30 06:14] LABS: BUN/CREATININE RATIO 21.11; CALCIUM SERUM 8.8 mg/dL (8.4-10.2); CREATININE SERUM 0.9 mg/dL (0.6-1.4)
[2017-04-30 06:16] LABS: POTASSIUM 5.7 mmol/L (3.5-5.1)
[2017-04-30 07:14] LABS: ARTERIAL BLD GAS O2 SATURATION 95.7 % (90.0-100.0); ARTERIAL BLOOD GAS CARBOXY HB 0.6 %sat (0.0-9.0); ARTERIAL BLOOD GAS HCO3 18.2 mmol/L; ARTERIAL BLOOD GAS PCO2 25.5 mmHg (35.0-45.0)
[2017-04-30 07:15] LABS: ARTERIAL BLOOD GAS ALLEN TEST NORMAL; ARTERIAL BLOOD GAS ART SITE LEFT RADIAL; ARTERIAL BLOOD GAS DELIVERY NASAL CANNULA; ARTERIAL DRAW? YES
[2017-04-30 14:40] LABS: INR 1.3; PROTHROMBIN TIME (PATIENT) 14.1 SECONDS (10.0-11.7)
[2017-05-01 06:23] LABS: HEMATOCRIT 35.8 % (35.0-45.0); HEMOGLOBIN 11.9 gm/dL (12.0-16.0); MEAN CELL VOLUME 87.8 FL (83-96); MEAN CORPUSCULAR HEMOGLOBIN 29.2 PG (28-34); MEAN CORPUSCULAR HGB CONC 33.2 g/dL (30-36); MEAN PLATELET VOLUME 8.2 FL (6.5-11.5); RED BLOOD COUNT 4.08 X10e (3.90-5.30); WHITE BLOOD COUNT 23.4 X10e3 (4.0-10.5)
[2017-05-01 06:27] LABS: BUN/CREATININE RATIO 11.48; CALCIUM SERUM 6.9 mg/dL (8.4-10.2); CREATININE SERUM 2.7 mg/dL (0.6-1.4); GLOM FILT RATE Estimated 19.3 mL/min (>60)
[2017-05-01 06:29] LABS: POTASSIUM 2.7 mmol/L (3.5-5.1)
[2017-05-01 09:00] LABS: HEMATOCRIT 36.6 % (35.0-45.0); MEAN CELL VOLUME 88.9 FL (83-96); MEAN CORPUSCULAR HEMOGLOBIN 29.2 PG (28-34); MEAN CORPUSCULAR HGB CONC 32.9 g/dL (30-36); MEAN PLATELET VOLUME 8.1 FL (6.5-11.5); RED BLOOD COUNT 4.11 X10e (3.90-5.30); RED CELL DISTRIBUTION WIDTH 14.3 % (11.0-15.5); WHITE BLOOD COUNT 25.1 X10e3 (4.0-10.5)
[2017-05-01 09:07] LABS: ALBUMIN SERUM 2.4 g/dL (3.5-5.0); BILIRUBIN,TOTAL 0.5 mg/dL (0.2-2.0); BUN/CREATININE RATIO 11.33; POTASSIUM 3.3 mmol/L (3.5-5.1); PROTEIN TOTAL SERUM 5.8 g/dL (6.0-8.3)
[2017-05-01 09:12] LABS: CALCIUM SERUM 6.8 mg/dL (8.4-10.2)
[2017-05-01 14:17] LABS: BUN/CREATININE RATIO 10.9; CALCIUM SERUM 6.3 mg/dL (8.4-10.2); CREATININE SERUM 3.3 mg/dL (0.6-1.4); GLOM FILT RATE Estimated 15.2 mL/min (>60); MAGNESIUM 1.3 mg/dL (1.6-3.0); POTASSIUM 3.1 mmol/L (3.5-5.1)
[2017-05-01 18:01] LABS: URINE APPEARANCE CLOUDY; URINE BILIRUBIN NEG (NEG); URINE BLOOD 3+ (NEG); URINE COLOR YELLOW; URINE GLUCOSE NEG (NEG); URINE KETONE NEG (NEG); URINE LEUKOCYTE ESTERASE TRACE (NEG); URINE NITRATE NEG (NEG); URINE PROTEIN 1+ (NEG); URINE SPECIFIC GRAVITY 1.009 (1.003-1.035); URINE UROBILINOGEN 0.2 MG/DL (NEG)
[2017-05-01 18:02] LABS: URBCS1 AUWI INNUM /[HPF] (0-2); URINE BACTERIA AUWI NEG (NEGATIVE); URINE SQUAMOUS EPITHELIAL CELL FEW /[HPF]
[2017-05-02 05:42] LABS: BASOPHIL% 0.2 % (0-2.5); EOSINOPHIL% 0.1 % (0.0-7.0); HEMATOCRIT 33.7 % (35.0-45.0); HEMOGLOBIN 11.2 gm/dL (12.0-16.0); LYMPHOCYTE# 1.1 X10e3 (1.0-3.5); LYMPHOCYTE% 6.1 % (17.0-45.0); MEAN CELL VOLUME 88.2 FL (83-96); MEAN CORPUSCULAR HEMOGLOBIN 29.3 PG (28-34); MEAN CORPUSCULAR HGB CONC 33.2 g/dL (30-36); MEAN PLATELET VOLUME 8.2 FL (6.5-11.5); MONOCYTE# 0.9 X10e3 (0-1.0); MONOCYTE% 5.1 % (3.0-12.0); NEUTROPHIL# 15.6 X10e3 (1.5-7.1); NEUTROPHIL% 88.5 % (40-75); PLATELET COUNT 167 X10e3 (140-420); RED BLOOD COUNT 3.82 X10e (3.90-5.30); RED CELL DISTRIBUTION WIDTH 14.3 % (11.0-15.5); WHITE BLOOD COUNT 17.6 X10e3 (4.0-10.5)
[2017-05-02 05:43] LABS: DIFF IND YES
[2017-05-02 06:41] LABS: BUN/CREATININE RATIO 10.85; CALCIUM SERUM 6.5 mg/dL (8.4-10.2); CREATININE SERUM 3.5 mg/dL (0.6-1.4); GLOM FILT RATE Estimated 14.1 mL/min (>60); MAGNESIUM 1.9 mg/dL (1.6-3.0); PHOSPHOROUS 4.2 mg/dL (2.5-4.6); POTASSIUM 3.5 mmol/L (3.5-5.1)
[2017-05-02 07:51] LABS: PLATELET ESTIMATE NORMAL (NORMAL); RBC NORMAL YES
[2017-05-03 04:33] LABS: ARTERIAL BLD GAS O2 SATURATION 91.8 % (90.0-100.0); ARTERIAL BLOOD GAS HCO3 21.9 mmol/L; ARTERIAL BLOOD GAS MET HB 0.9 %sat (0.0-2.0); ARTERIAL BLOOD GAS PCO2 40.8 mmHg (35.0-45.0); ARTERIAL BLOOD GAS pH 7.339 (7.350-7.450)
[2017-05-03 04:44] LABS: ARTERIAL BLOOD GAS ALLEN TEST NORMAL; ARTERIAL BLOOD GAS ART SITE RIGHT RADIAL; ARTERIAL BLOOD GAS PO2 65.9 mmHg (80.0-100); ARTERIAL DRAW? YES
[2017-05-03 04:45] LABS: ARTERIAL BLOOD GAS DELIVERY CPAP AUTO 5 TO 20
[2017-05-03 05:18] LABS: BASOPHIL% 0.1 % (0-2.5); EOSINOPHIL% 0.1 % (0.0-7.0); HEMATOCRIT 28.6 % (35.0-45.0); HEMOGLOBIN 9.6 gm/dL (12.0-16.0); LYMPHOCYTE# 1.4 X10e3 (1.0-3.5); LYMPHOCYTE% 7.6 % (17.0-45.0); MEAN CORPUSCULAR HEMOGLOBIN 29.5 PG (28-34); MEAN CORPUSCULAR HGB CONC 33.5 g/dL (30-36); MEAN PLATELET VOLUME 8.3 FL (6.5-11.5); MONOCYTE# 1.4 X10e3 (0-1.0); MONOCYTE% 7.6 % (3.0-12.0); NEUTROPHIL# 15.5 X10e3 (1.5-7.1); NEUTROPHIL% 84.6 % (40-75); PLATELET COUNT 179 X10e3 (140-420); RED BLOOD COUNT 3.25 X10e (3.90-5.30); RED CELL DISTRIBUTION WIDTH 14.5 % (11.0-15.5); WHITE BLOOD COUNT 18.3 X10e3 (4.0-10.5)
[2017-05-03 05:19] LABS: DIFF IND NO
[2017-05-03 05:42] LABS: ALBUMIN SERUM 2.3 g/dL (3.5-5.0); BILIRUBIN,TOTAL 0.6 mg/dL (0.2-2.0); BUN/CREATININE RATIO 11.29; CALCIUM SERUM 6.6 mg/dL (8.4-10.2); CREATININE SERUM 3.1 mg/dL (0.6-1.4); GLOM FILT RATE Estimated 16.4 mL/min (>60); MAGNESIUM 1.8 mg/dL (1.6-3.0); PHOSPHOROUS 4.3 mg/dL (2.5-4.6); PROTEIN TOTAL SERUM 6.4 g/dL (6.0-8.3)
[2017-05-04 06:05] LABS: HEMATOCRIT 31.9 % (35.0-45.0); HEMOGLOBIN 10.6 gm/dL (12.0-16.0); MEAN CELL VOLUME 87.9 FL (83-96); MEAN CORPUSCULAR HEMOGLOBIN 29.2 PG (28-34); MEAN CORPUSCULAR HGB CONC 33.2 g/dL (30-36); MEAN PLATELET VOLUME 8.1 FL (6.5-11.5); PLATELET COUNT 204 X10e3 (140-420); RED BLOOD COUNT 3.63 X10e (3.90-5.30); RED CELL DISTRIBUTION WIDTH 14.3 % (11.0-15.5); WHITE BLOOD COUNT 18.3 X10e3 (4.0-10.5)
[2017-05-04 07:14] LABS: ALBUMIN SERUM 2.3 g/dL (3.5-5.0); BILIRUBIN,TOTAL 0.5 mg/dL (0.2-2.0); BUN/CREATININE RATIO 11.33; CALCIUM SERUM 7.7 mg/dL (8.4-10.2); MAGNESIUM 1.7 mg/dL (1.6-3.0); POTASSIUM 3.1 mmol/L (3.5-5.1); PROTEIN TOTAL SERUM 6.8 g/dL (6.0-8.3)
[2017-05-05 05:53] LABS: HEMATOCRIT 31.3 % (35.0-45.0); HEMOGLOBIN 10.2 gm/dL (12.0-16.0); MEAN CELL VOLUME 88.4 FL (83-96); MEAN CORPUSCULAR HEMOGLOBIN 28.9 PG (28-34); MEAN CORPUSCULAR HGB CONC 32.7 g/dL (30-36); MEAN PLATELET VOLUME 8.2 FL (6.5-11.5); RED BLOOD COUNT 3.55 X10e (3.90-5.30); RED CELL DISTRIBUTION WIDTH 14.5 % (11.0-15.5); WHITE BLOOD COUNT 18.5 X10e3 (4.0-10.5)
[2017-05-05 06:24] LABS: ALBUMIN SERUM 2.3 g/dL (3.5-5.0); BILIRUBIN,TOTAL 0.8 mg/dL (0.2-2.0); BUN/CREATININE RATIO 11.53; CALCIUM SERUM 7.7 mg/dL (8.4-10.2); CREATININE SERUM 2.6 mg/dL (0.6-1.4); GLOM FILT RATE Estimated 20.2 mL/min (>60); POTASSIUM 3.7 mmol/L (3.5-5.1); PROTEIN TOTAL SERUM 7.1 g/dL (6.0-8.3)
[2017-05-06 07:01] LABS: HEMATOCRIT 31.1 % (35.0-45.0); HEMOGLOBIN 10.3 gm/dL (12.0-16.0); MEAN CELL VOLUME 89.6 FL (83-96); MEAN CORPUSCULAR HEMOGLOBIN 29.6 PG (28-34); MEAN CORPUSCULAR HGB CONC 33.1 g/dL (30-36); MEAN PLATELET VOLUME 8.2 FL (6.5-11.5); RED BLOOD COUNT 3.47 X10e (3.90-5.30); RED CELL DISTRIBUTION WIDTH 14.4 % (11.0-15.5); WHITE BLOOD COUNT 20.1 X10e3 (4.0-10.5)
[2017-05-06 08:06] LABS: BUN/CREATININE RATIO 11.9; CALCIUM SERUM 7.7 mg/dL (8.4-10.2); CREATININE SERUM 2.1 mg/dL (0.6-1.4); GLOM FILT RATE Estimated 26.2 mL/min (>60); POTASSIUM 3.5 mmol/L (3.5-5.1)
[2017-05-07 05:44] LABS: HEMATOCRIT 31.1 % (35.0-45.0); HEMOGLOBIN 10.1 gm/dL (12.0-16.0); MEAN CELL VOLUME 89.6 FL (83-96); MEAN CORPUSCULAR HEMOGLOBIN 29.1 PG (28-34); MEAN CORPUSCULAR HGB CONC 32.5 g/dL (30-36); MEAN PLATELET VOLUME 7.8 FL (6.5-11.5); RED BLOOD COUNT 3.47 X10e (3.90-5.30); RED CELL DISTRIBUTION WIDTH 14.6 % (11.0-15.5); WHITE BLOOD COUNT 21.5 X10e3 (4.0-10.5)
[2017-05-07 06:54] LABS: BUN/CREATININE RATIO 12.1; CALCIUM SERUM 8.1 mg/dL (8.4-10.2); CREATININE SERUM 1.9 mg/dL (0.6-1.4); GLOM FILT RATE Estimated 29.6 mL/min (>60)
[2017-05-07 07:19] LABS: PROCALCITONIN 2.34 NG/ML
[2017-05-08 05:32] LABS: HEMATOCRIT 30.5 % (35.0-45.0); HEMOGLOBIN 9.7 gm/dL (12.0-16.0); MEAN CELL VOLUME 90.7 FL (83-96); MEAN CORPUSCULAR HEMOGLOBIN 28.9 PG (28-34); MEAN CORPUSCULAR HGB CONC 31.9 g/dL (30-36); MEAN PLATELET VOLUME 7.6 FL (6.5-11.5); RED BLOOD COUNT 3.36 X10e (3.90-5.30); RED CELL DISTRIBUTION WIDTH 14.5 % (11.0-15.5); WHITE BLOOD COUNT 23.2 X10e3 (4.0-10.5)
[2017-05-08 05:54] LABS: BUN/CREATININE RATIO 13.33; CREATININE SERUM 1.8 mg/dL (0.6-1.4); GLOM FILT RATE Estimated 31.6 mL/min (>60); POTASSIUM 4.3 mmol/L (3.5-5.1)
[2017-05-09 05:32] LABS: HEMATOCRIT 30.8 % (35.0-45.0); MEAN CELL VOLUME 90.6 FL (83-96); MEAN CORPUSCULAR HEMOGLOBIN 29.4 PG (28-34); MEAN CORPUSCULAR HGB CONC 32.5 g/dL (30-36); MEAN PLATELET VOLUME 7.3 FL (6.5-11.5); RED BLOOD COUNT 3.4 X10e (3.90-5.30); RED CELL DISTRIBUTION WIDTH 14.3 % (11.0-15.5); WHITE BLOOD COUNT 20.5 X10e3 (4.0-10.5)
[2017-05-09 05:52] LABS: BUN/CREATININE RATIO 13.33; CALCIUM SERUM 8.7 mg/dL (8.4-10.2); CREATININE SERUM 1.8 mg/dL (0.6-1.4); GLOM FILT RATE Estimated 31.6 mL/min (>60)
[2017-05-10 05:01] LABS: HEMATOCRIT 29.4 % (35.0-45.0); HEMOGLOBIN 9.7 gm/dL (12.0-16.0); MEAN CELL VOLUME 89.6 FL (83-96); MEAN CORPUSCULAR HEMOGLOBIN 29.6 PG (28-34); MEAN PLATELET VOLUME 6.9 FL (6.5-11.5); RED BLOOD COUNT 3.28 X10e (3.90-5.30); WHITE BLOOD COUNT 14.8 X10e3 (4.0-10.5)
[2017-05-10 05:33] LABS: BUN/CREATININE RATIO 14.37; CALCIUM SERUM 8.3 mg/dL (8.4-10.2); CREATININE SERUM 1.6 mg/dL (0.6-1.4); GLOM FILT RATE Estimated 36.4 mL/min (>60); MAGNESIUM 1.6 mg/dL (1.6-3.0); POTASSIUM 3.6 mmol/L (3.5-5.1)
[2017-05-10] MEDS ORDERED: ROCEPHIN IV (11:35)
[2017-05-10] MEDS ORDERED: ZOLOFT PO (11:38)
[2017-05-10] MEDS ORDERED: PROBIOTIC250 MG PO (11:38)
[2017-05-10] MEDS ORDERED: BUMEX PO (11:40)
[2017-05-10] MEDS ORDERED: ACETAMINOPHEN PO (11:43)
[2017-05-10] MEDS ORDERED: TOPAMAX PO (11:49)
[2017-05-10] MEDS ORDERED: ANTI-FUNGAL15 GM TOP (11:54)
[2017-05-10] MEDS ORDERED: LISINOPRIL20 MG PO (11:56)
== END 2017-05-10 14:14 | disposition home health service (06) | DRG 871 ==
LOC: UNDOADMIN 16:55 → CICCU3 16:55 → C5B 05-02 22:16 → C5C 05-05 21:24
PROVIDERS: Hospitalist; Internal Medicine; Internal Medicine Nephrology; Nurse Practitioner; Nurse Practitioner Family; Physician Assistant Medical
PROC: 05HM33Z Insertion of Infusion Device into Right Internal Jugular Vein, Percutaneous Approach (ICD-10-PCS; 2017-04-30)
PROC: B513YZA Fluoroscopy of Right Jugular Veins using Other Contrast, Guidance (ICD-10-PCS; 2017-04-30)
PROC: B543ZZA Ultrasonography of Right Jugular Veins, Guidance (ICD-10-PCS; 2017-04-30)
PROC: B246YZZ Ultrasonography of Right and Left Heart using Other Contrast (ICD-10-PCS; principal; 2017-05-01)
PROC: 02HV33Z Insertion of Infusion Device into Superior Vena Cava, Percutaneous Approach (ICD-10-PCS; 2017-05-06)
PROC: B518YZA Fluoroscopy of Superior Vena Cava using Other Contrast, Guidance (ICD-10-PCS; 2017-05-06)
PROC: B548ZZA Ultrasonography of Superior Vena Cava, Guidance (ICD-10-PCS; 2017-05-06)
DX: A40.0 Sepsis due to streptococcus, group A (principal); R65.21 Severe sepsis with septic shock; N17.0 Acute kidney failure with tubular necrosis; G92 Toxic encephalopathy; E87.2 Acidosis; L03.116 Cellulitis of left lower limb; E87.1 Hypo-osmolality and hyponatremia; E87.6 Hypokalemia; G47.33 Obstructive sleep apnea (adult) (pediatric); E66.01 Morbid (severe) obesity due to excess calories; J44.9 Chronic obstructive pulmonary disease, unspecified; J45.909 Unspecified asthma, uncomplicated; F32.9 Major depressive disorder, single episode, unspecified; Z84.1 Family history of disorders of kidney and ureter; E83.51 Hypocalcemia; T36.8X5A Adverse effect of other systemic antibiotics, initial encounter; T36.0X5A Adverse effect of penicillins, initial encounter; E11.65 Type 2 diabetes mellitus with hyperglycemia; I12.9 Hypertensive chronic kidney disease with stage 1 through stage 4 chronic kidney disease, or unspecified chronic kidney disease; N18.3 Chronic kidney disease, stage 3 (moderate)
CPT/HCPCS: 36600; 70450; 73700; 76770; 76937; 77001; 80048; 80053; 80202; 81003; 82308; 82330; 82550; 82803; 82947; 83605; 83735; 84100; 84132; 84300; 85025; 85027; 85610; 85652; 86140; 87040; 87045; 87086; 87427; 87493; 87899; 89190; 93005; 93306; 93970; 94640; 94660; 94664; 94760; 94761; 97116; 97161; 97167; 97535; C1751; C1894; G8978-GP; G8979-GP; G8980-GP; G8987-GO; G8988-GO; J0610; J0696; J0878; J1642; J1650; J1815; J1940; J2543; J3370; J3475

== ENCOUNTER → 2017-04-29 | Emergency (ER) | payer OTHER ==
[~2017-04-29] MED LIST: ACETAMINOPHEN PO; ALBUTEROL INHALER INH; ALBUTEROL17 GM INH; ALDACTONE25 MG PO; AMOXIL500 MG PO; ANTI-FUNGAL15 GM TOP; BACTRIM 400-801 TA1 PO; BACTRIM DS TABL1 TAB PO; BACTROBAN22 GM TP; BP MED; BUMEX PO; BUSPAR PO; CHOLESTEROL MED; CLEOCIN150 MG PO; CLINDAMYCIN HC300 MG PO; COMBIVENT INH14.7 GM INH; COMBIVENT14.7 GM INH; CYMBALTA PO; DIET PILL; EC-NAPROSYN500 MG PO; FLEXERIL PO; FLONASE; GLIPIZIDE10 MG PO; HTN MED; JANUVIA PO; JANUVIA100 MG PO; KEFLEX PO; LAMICTAL PO; LASIX; LASIX PO; LASIX20 MG PO; LEVAQUIN PO; LISINOPRIL PO; LISINOPRIL10 MG PO; LISINOPRIL20 MG PO; LORATADINE PO; LORTAB 5/500 TA1 TA1 PO; MEDROL PO; METFORMIN HCL500 M1 PO; METFORMIN PO; NEURONTIN PO; NIZORAL TOP; OYSTER CALCIUM500 MG PO; PRAVASTATIN PO; PRAVASTATIN SOD40 MG PO; PREDNISONE10 MG PO; PROBIOTIC250 MG PO; QVAR 40 MCG INH; QVAR7.3 G1 IH; QVAR7.3 G1 INH; ROCEPHIN IV; SPIRIVA INHALER INH; SPIRONOLACTONE PO; TANZEUM SUBQ; TOPAMAX PO; TOPIRAMATE ER50 MG PO; TRAZODONE PO; TYLENOL #3 PO; ULTRAM PO; VICODIN 5/1 TAB 5/50 PO; VITAMIN D2 1.25MG PO; ZITHROMAX PO; ZOLOFT PO; ZOLOFT20 MG/1 ML PO; [UNRECOGNIZED DRUG - REMARK]
--- NOTE | ~2017-04-29 | CR72 ---
[facility]. [facility] A Service of [facility] & [facility] RADIOLOGY TEXT RESULTS PATIENT: JOY RIGGS LOCATION: SED : 61 UNIT #: [id number] AGE: [address]: John Unger MD SEX: F ORDER DR: [id number] [place] [id number] E MR#: [id number] Acc #: [id number] NAME: JOY RIGGS : 1965 SEX: F STUDY DATE/TIME: 04/29/2017 13:21 UNIT: SED ROOM: STUDY DESCRIPTION: CR Chest Single View Portable Attending Physician: John Unger M.D. Ordering Physician: John Unger M.D. Primary Care Physician: Shane Jaeger M.D. MEDICAL IMAGING REPORT This report is preliminary unless electronic signature is present. EXAM Portable chest 04/29/2017 at 13:21 HISTORY Confusion, shortness breath and fever since yesterday. COMPARISON AP portable chest 01/10/2015. FINDINGS Study is attenuated by patient body habitus. No acute airspace disease is seen. No pleural effusion, pneumothorax or acute osseous abnormalities are identified. Mild degenerative spurring of the bilateral acromioclavicular joints. IMPRESSION No acute cardiopulmonary findings. No significant change compared to 01/10/2015. Dictated by... Chanlel Roy M.D. THIS IS AN ELECTRONICALLY VERIFIED REPORT Chanell Roy M.D. at 04/30/2017 9:36 PM [facility]/to TD: 04/29/2017 17:34 JOB #: [id number] MEDICAL IMAGING REPORT Page 1 of 1
--- NOTE | ~2017-04-29 | CT57 ---
[facility] A Service [facility] RADIOLOGY TEXT RESULTS PATIENT: JOY RIGGS LOCATION: SED : [birth year] UNIT #: [id number] AGE: [address]: John Unger MD SEX: F ORDER DR: [id number] [place] [id number] E MR#: [id number] Acc #: [id number] NAME: JOY RIGGS : 1965 SEX: F STUDY DATE/TIME: 04/29/2017 15:10 UNIT: SED ROOM: STUDY DESCRIPTION: CT Chest Wo Cont Attending Physician: John Unger M.D. Ordering Physician: John Unger M.D. Primary Care Physician: Shane Jaeger M.D. MEDICAL IMAGING REPORT This report is preliminary unless electronic signature is present. EXAM CT chest, 04/29. INDICATIONS Shortness of air started this morning. Patient found down and confused. Fever and tachycardia. TECHNIQUE Axial noncontrast images were obtained through the chest. Multiplanar reformats were obtained. COMPARISON Comparison made 01/11/2015. This CT exam was performed with one or more of the following radiation dose reduction techniques: automatic exposure control, adjustment of mA and/or kV according to patient size, and iterative reconstruction. FINDINGS Coronary artery disease is present. There is no pleural or pericardial effusion. There is no adenopathy. The lungs are clear. IMPRESSION No acute findings in the chest. There is coronary artery disease. Dictated by... Deniz Chino Jr., M.D. THIS IS AN ELECTRONICALLY VERIFIED REPORT Deniz Chino Jr., M.D. at 04/30/2017 7:19 AM RLK/jt [facility] A Service [facility] RADIOLOGY TEXT RESULTS PATIENT: JOY RIGGS LOCATION: SED : [birth year] UNIT #: [id number] AGE: [address]: John Unger MD SEX: F ORDER DR: TD: 04/29/2017 21:14 JOB #: [id number] MEDICAL IMAGING REPORT Page 1 of 1
--- NOTE | ~2017-04-29 | CT4 ---
[facility] A Service [facility] RADIOLOGY TEXT RESULTS PATIENT: JOY RIGGS LOCATION: SED : [birth year] UNIT #: [id number] AGE: [address]: John Unger MD SEX: F ORDER DR: [id number] [place] [id number] E MR#: [id number] Acc #: [id number] NAME: JOY RIGGS. : 1965 SEX: F STUDY DATE/TIME: 04/29/2017 14:53 UNIT: SED ROOM: STUDY DESCRIPTION: CT Abd and Pelv Wo Cont Attending Physician: John Unger M.D. Ordering Physician: John Unger M.D. Primary Care Physician: Shane Jaeger M.D. MEDICAL IMAGING REPORT This report is preliminary unless electronic signature is present. EXAM CT abdomen and pelvis 04/29 INDICATIONS Acute onset abdominal pain with tachycardia and fever. Patient found down this morning. Confused. TECHNIQUE Axial images were obtained through the abdomen and pelvis without contrast. Multiplanar reformats were obtained. This CT exam was performed with one or more of the following radiation dose reduction techniques: automatic exposure control, adjustment of mA and/or kV according to patient size, and iterative reconstruction. COMPARISON STUDIES 11/30/2010. FINDINGS ABDOMEN: The gallbladder is normal. No renal or ureteral stones are seen. There is no hydronephrosis. There is fatty infiltration of the liver. Solid organs are otherwise normal. The unopacified GI tract is grossly normal, other than some fatty infiltration of the wall of the colon. This may be due to prior bouts of colitis. There are some shotty retroperitoneal lymph nodes. PELVIS: No lower ureteral stones are seen. The bladder is decompressed by a Rebolledo. Uterus is unremarkable. There is mild left common and external iliac adenopathy. This is present to some degree on the old study but is slightly worsened. Consider follow-up CT in 3-6 months. 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 [facility] A Service of [facility] RADIOLOGY TEXT RESULTS PATIENT: JOY RIGGS LOCATION: [facility] : [birth year] UNIT #: [id number] AGE: [address]: John Unger MD SEX: F ORDER DR: IMPRESSION 1. No renal or ureteral stones. No hydronephrosis. 2. No acute findings in the GI tract. Fatty infiltration of the colon wall may be secondary to prior bouts of infection or inflammation. 3. Bladder decompressed by a Rebolledo. 4. Shotty retroperitoneal adenopathy in the abdomen which extends along the iliac chain in the left marquis-pelvis. There is mild bilateral groin adenopathy as well. These findings are present to a large degree on the study from 2010 but are slightly worsened. This is nonspecific. Benign etiology is favored but I would suggest a follow-up CT in 3-6 months to document stability or improvement. Dictated by... Deniz Chino Jr., M.D. THIS IS AN ELECTRONICALLY VERIFIED REPORT Deniz Chino Jr., M.D. at 04/30/2017 7:19 AM GAGE/carl TD: 04/29/2017 22:11 JOB #: [id number] MEDICAL IMAGING REPORT Page 1 of 1
[2017-04-29 13:46] LABS: BASOPHIL# 0.2 X10e3 (0-0.3); BASOPHIL% 0.8 % (0-2.5); HEMATOCRIT 42.2 % (35.0-45.0); HEMOGLOBIN 14.1 gm/dL (12.0-16.0); LYMPHOCYTE% 4.4 % (17.0-45.0); MEAN CELL VOLUME 89.4 FL (83-96); MEAN CORPUSCULAR HEMOGLOBIN 29.8 PG (28-34); MEAN CORPUSCULAR HGB CONC 33.4 g/dL (30-36); MEAN PLATELET VOLUME 7.8 FL (6.5-11.5); MONOCYTE# 0.6 X10e3 (0-1.0); MONOCYTE% 2.7 % (3.0-12.0); NEUTROPHIL# 21.6 X10e3 (1.5-7.1); NEUTROPHIL% 92.1 % (40-75); PLATELET COUNT 254 X10e3 (140-420); RED BLOOD COUNT 4.72 X10e (3.90-5.30); RED CELL DISTRIBUTION WIDTH 13.8 % (11.0-15.5); WHITE BLOOD COUNT 23.5 X10e3 (4.0-10.5)
[2017-04-29 13:55] LABS: DIFF IND YES
[2017-04-29 14:07] LABS: POC - CKMB <1.0 ng/mL (0.0-7.9)
[2017-04-29 14:08] LABS: POC - TROPONIN <0.05 ng/mL (<=0.05)
[2017-04-29 14:13] LABS: URINE SOURCE CLEAN CATCH
[2017-04-29 14:14] LABS: ALBUMIN SERUM 3.8 g/dL (3.5-5.0); BILIRUBIN,TOTAL 0.8 mg/dL (0.2-2.0); BUN/CREATININE RATIO 13.57; CALCIUM SERUM 8.4 mg/dL (8.4-10.2); CREATININE SERUM 1.4 mg/dL (0.6-1.4); GLOM FILT RATE Estimated 42.8 mL/min (>60); POTASSIUM 4.1 mmol/L (3.5-5.1); PROTEIN TOTAL SERUM 8.3 g/dL (6.0-8.3)
[2017-04-29 14:26] LABS: URINE APPEARANCE SL CLOUDY; URINE BLOOD 1+ (NEG); URINE COLOR DK YELLOW; URINE GLUCOSE 300 MG/DL (NORM); URINE KETONE 1+ (NEG); URINE LEUKOCYTE ESTERASE NEG (NEG); URINE NITRATE NEG (NEG); URINE PH 5.5 (5-8); URINE PROTEIN 2+ (NEG); URINE SPECIFIC GRAVITY >=1.030 (1.003-1.035)
[2017-04-29 14:40] LABS: MICRO INDICATED? YES; URINE BILIRUBIN NEG (NEG)
[2017-04-29 14:41] LABS: CULTURE INDICATED? YES; URINE RBC 0-2 /[HPF] (0-2)
[2017-04-29 14:42] LABS: URINE AMORPHOUS SEDIMENT AMORP URATES; URINE BACTERIA 1+ (NEG); URINE SQUAMOUS EPITHELIAL CELL MODERATE /[HPF]
[2017-04-29 14:51] LABS: PLATELET ESTIMATE NORMAL (NORMAL)
[2017-04-29 14:52] LABS: RBC NORMAL YES
== END | disposition other institution (70) ==
LOC: SED 12:54
PROVIDERS: Emergency Medicine
DX: A41.9 Sepsis, unspecified organism (principal); R73.9 Hyperglycemia, unspecified
CPT/HCPCS: 36415; 51702; 71010; 71250; 74176; 80053; 81003; 82553; 82947; 83605; 83880; 84484; 85025; 87040; 87077; 87086; 87186; 94640; 96361; 96365; 96375; 99291; J2543